=== PATIENT | male | born 1955 | race Caucasian/White ===

== ENCOUNTER 2017-02-14 18:14 | Emergency (ER) | payer MEDICARE, OTHER ==
[~2017-02-14] VITALS: Ht 175.3 cm; Wt 79.5 kg
[~2017-02-14 18:14] MED LIST: ASC500 PO; BACL20TA PO; BISA10SU55 RC; CALC-61 PO; CLI60SOL TOP; CRAN450C PO; DABI150C PO; DEXT1CAP PO; DIVA250T60 PO; DOCU-144 PO; DOXY-220 PO; FER325 PO; FLUC100T39 PO; HYDR-906 PO; IPRA3AMP INHALATION; LACT20SO2 PO; LAM1CR24 TOP; MAGN400O4 PO; MORP60TA37 PO; MULTI PO; NA P230E RC; PROC10TA10 PO; PROP10TA6 PO; SENN-53 PO; TYL500 PO; VARE1TAB20 PO; ZOLP5TAB PO
[2017-02-14 18:34] VITALS: Ht 175.3 cm; Wt 79.5 kg
[2017-02-14 18:45] LABS: ADD SCAN DIFF NO
[2017-02-14 18:47] LABS: BASOPHIL # 0.1 10^3/ul (0.0-0.1); BASOPHILS % 0.8 % (0.0-2.0); EOSINOPHILS # 0.6 10^3/ul (0.0-0.5); EOSINOPHILS % 7.2 % (0.0-7.0); HEMOGLOBIN 13.3 g/dl (14.0-18.0); LYMPHOCYTES # 2.4 10^3/ul (0.8-2.9); LYMPHOCYTES % 29.1 % (15.0-51.0); MEAN CORPUSCULAR HEMOGLOBIN 26.8 pg (29.0-33.0); MEAN CORPUSCULAR HGB CONC 30.9 g/dl (32.0-37.0); MEAN CORPUSCULAR VOLUME 86.5 fl (82.0-101.0); MEAN PLATELET VOLUME 10.8 fl (7.4-10.4); MONOCYTE # 0.8 10^3/ul (0.3-0.9); MONOCYTES % 9.2 % (0.0-11.0); NEUTROPHIL # 4.4 10^3/ul (1.6-7.5); NEUTROPHILS % 53.5 % (39.0-77.0); PLATELET COUNT 176 10^3/UL (140-415); RED BLOOD COUNT 4.97 10^6/ul (4.70-6.10); RED CELL DISTRIBUTION WIDTH 15.7 % (11.5-14.5); WHITE BLOOD COUNT 8.3 10^3/ul (4.8-10.8)
[2017-02-14] MEDS ORDERED: CRAN425C PO (18:58)
[2017-02-14] MEDS ORDERED: LACT10SO5 PO (18:59)
[2017-02-14] MEDS ORDERED: ACET325T33 PO (19:01)
[2017-02-14] MEDS ORDERED: ZINC220T PO (19:01)
--- NOTE | 2017-02-14 19:04 | ERA ---
ER Documentation Chief Complaint Date/Time DATE: 02/14/17 Chief Complaint Head pain HPI The patient is a 61-year-old male, presenting to the ER because he fell off the wheelchair prior to arrival. He has a small bleb on the left side of the head, denies syncope, near syncope, facial pain, neck pain, chest pain, dyspnea, abdominal pain, vomiting. He does not smoke or drink Past medical history: Hypertension, history of CVA Past surgical history: None ROS All systems reviewed and are negative except as per history of present illness. Medications Home Meds Active Scripts Ferrous Sulfate* (Ferrous Sulfate*) 325 Mg Tabec, 325 MG PO DAILY, #30 TAB Prov:JAYLIN MELENDEZ MD 09/15/16 Reported Medications Zinc Sulfate* (Zinc Sulfate*) 220 Mg Tablet, 220 MG PO DAILY, TAB 02/14/17 Acetaminophen* (Tylenol*) 325 Mg Tablet, 650 MG PO Q6H Y for MILD PAIN LEVEL 1-3 , TAB 02/14/17 Lactulose* (Lactulose*) 10 Gm/15 Ml Solution, 20 GM PO DAILY Y for PRN, ML 02/14/17 Cranberry Extract (Cranberry) 425 Mg Capsule, 425 MG PO DAILY, CAP 02/14/17 Multivitamins* (Theragran*) 1 Tab Tab, 1 TAB PO Q12, TAB 09/13/16 Morphine Sulfate* (Ms Contin*) 60 Mg Tablet.sa, 60 MG PO Q12H, TAB.SA 09/13/16 Magnesium Hydroxide* (Milk Of Magnesia*) 400 Mg/5 Ml Oral.susp, 30 ML PO Q12H Y for PRN, ML 09/13/16 Propranolol Hcl* (Propranolol Hcl*) 10 Mg Tablet, 10 MG PO BID, TAB HOLD IF SBP BELOW 110,HR BELOW 60 09/13/16 Na Phos,M-B/Na Phos,Di-Ba (Fleet Enema Extra) 230 Ml Enema, 230 ML RC NEEDED Y for PRN, ENEMA 09/13/16 Ipratropium-Albuterol (Ipratropium-Albuterol) 0.5-3 Mg/3 Ml Ampul.neb, 3 ML INHALATION Q6 Y for PRN, #30 VIAL 09/13/16 Bisacodyl (Dulcolax) 10 Mg Supp.rect, 10 MG RC NEEDED Y for PRN, SUPP.RECT 09/13/16 Divalproex Sodium* (Depakote*) 250 Mg Tablet.dr, 250 MG PO QHS, TAB 09/13/16 Prochlorperazine* (Prochlorperazine*) 10 Mg Tablet, 10 MG PO Q8 Y for NAUSEA, TAB 09/13/16 Docusate Sodium* (Colace*) 100 Mg Capsule, 200 MG PO QHS, #30 CAP 09/13/16 Varenicline Tartrate (Chantix) 1 Mg Tablet, 1 MG PO BID, TAB 09/13/16 Ascorbic Acid (Vitamin C) 500 Mg Tab, 500 MG PO BID, TAB 09/13/16 Acetaminophen* (Tylenol*) 500 Mg Tab, 1000 MG PO Q6H Y for PAIN 4-05/06, TAB 09/13/16 Sennosides* (Senna Lax*) 8.6 Mg Tablet, 2 TAB PO QHS, TAB 09/13/16 Dabigatran Etexilate Mesylate* (Pradaxa*) 150 Mg Capsule, 150 MG PO BID, CAP 09/13/16 Hydrocodone/Acetaminophen ([place] 5-325 Tablet) 1 Each Tablet, 1 EACH PO Q6 Y for PAIN 7-08/06, TAB 09/13/16 Calcium Carbonate/Vitamin D3 (Calcium 500 + Vit D 200 Tablet) 1 Each Tablet, 1 EACH PO BID, TAB 09/13/16 Baclofen* (Baclofen*) 20 Mg Tablet, 40 MG PO TID, TAB 09/13/16 Zolpidem Tartrate* (Ambien*) 5 Mg Tablet, 5 MG PO QHS Y for INSOMNIA, #30 TAB 09/13/16 Discontinued Reported Medications Lactulose* (Lactulose*) 20 Gm/30 Ml Solution, 20 GM PO NEEDED Y for PRN, ML 09/13/16 Cranberry Fruit Concentrate (CRANBERRY) 450 Mg Capsule, 450 MG PO DAILY, CAP 09/13/16 Dextromethorphan Hbr/Quinidine (NUEDEXTA 20-10 MG CAPSULE) 1 Each Capsule, 1 EACH PO Q12, CAP 09/13/16 Discontinued Scripts Doxycycline Monohydrate* (Doxycycline Monohydrate*) 100 Mg Tablet, 100 MG PO BID for 20 Days, TAB Prov:JAYLIN MELENDEZ MD 09/15/16 Fluconazole* (Fluconazole*) 100 Mg Tablet, 100 MG PO DAILY, #10 TAB Prov:JAYLIN MELENDEZ MD 09/15/16 Terbinafine Hcl* (Lamisil*) 1% - 30 Gm Cr, 1 APPLIC TOP DAILY for 30 Days, #1 TUB Prov:JAYLIN MELENDEZ MD 09/15/16 Clindamycin* Topical (Clindamycin* Topical) 1 %-60 Ml Solution, 1 APPLIC TOP BID for 20 Days, EA Prov:JAYLIN MELENDEZ MD 09/15/16 Allergies Allergies: Coded Allergies: No Known Drug Allergies (Verified Allergy, Unknown, 02/14/17) PMhx/Soc History of Surgery: No Anesthesia Reaction: No Hx Neurological Disorder: No Hx Respiratory Disorders: Yes (COPD, ASTHMA) Hx Cardiac Disorders: Yes (CVA (PER PATIENT 8 YEARS AGO)) Hx Psychiatric Problems: Yes Hx Miscellaneous Medical Probl: Yes (Dysphagia S/P PEG ) Hx Alcohol Use: Yes Hx Substance Use: No Hx Tobacco Use: No Physical Exam Vitals Vital Signs Date Time Temp Pulse Resp B/P Pulse Ox O2 Delivery O2 Flow Rate FiO2 02/14/17 18:34 98.4 80 18 109/68 97 Physical Exam Const: No acute distress. Head: Atraumatic. Eyes: Normal Conjunctiva. ENT: Normal External Ears, Nose and Mouth. Neck: Full range of motion. No meningismus. Resp: Clear to auscultation bilaterally. Cardio: Regular rate and rhythm, no murmurs. Abd: Soft, non distended, normal bowel sounds, non tender. Skin: No petechiae or rashes. Back: No midline or flank tenderness. Ext: No cyanosis, or edema. Neur: Awake and alert. Left hemiparalysis Psych: Normal Mood and Affect. Result Diagram: 02/14/17 1835 02/14/17 1835 Results 24 hrs Laboratory Tests Test 02/14/17 18:35 Activated Partial Thromboplast Time Pending Anion Gap 17 Basophils # 0.110^3/ul Basophils % 0.8% Blood Urea Nitrogen 18mg/dl Calcium Level 9.1mg/dl Carbon Dioxide Level 30mmol/L Chloride Level 104mmol/L Creatinine 0.75mg/dl Eosinophils # 0.610^3/ul Eosinophils % 7.2% Glucose Level 110mg/dl Hematocrit 43.0% Hemoglobin 13.3g/dl INR International Normalized Ratio 1.23 Lymphocytes # 2.410^3/ul Lymphocytes % 29.1% Mean Corpuscular Hemoglobin 26.8pg Mean Corpuscular Hemoglobin Concent 30.9g/dl Mean Corpuscular Volume 86.5fl Mean Platelet Volume 10.8fl Monocytes # 0.810^3/ul Monocytes % 9.2% Neutrophils # 4.410^3/ul Neutrophils % 53.5% Nucleated Red Blood Cells # 0.010^3/ul Nucleated Red Blood Cells % 0.0/100WBC Platelet Count 53145^3/UL Potassium Level 4.3mmol/L Prothrombin Time 15.6Sec Prothrombin Time Ratio 1.2 Red Blood Count 4.9710^6/ul Red Cell Distribution Width 15.7% Sodium Level 147mmol/L White Blood Count 8.310^3/ul Procedures/[place] [id number] Radiology Main Line: [phone] DIAGNOSTIC IMAGING REPORT Patient: GAUDENCIO GODFREY : 1955 Age: 61 Sex: M MR #: [id number] DOS: 02/14/17 1823 Ordering MD: RAMIRO CROSS MD Location: E/R Room/Bed: PROCEDURE: CT Brain without contrast. CLINICAL INDICATION: Headache. TECHNIQUE: A CT of the brain without contrast was performed utilizing axial sections from the skull base through the vertex. The patient was scanned without intravenous contrast enhancement. Sagittal and coronal reformatted images were obtained using the data from the axial images. Total exam DLP is 720.23 mGy-cm. CTDIvol is 45.01 mGy. One or more of the following dose reduction techniques were used: Automated exposure control, adjustment of the mA and/or kV according to patient size, use of iterative reconstruction technique. COMPARISON: CT scan of the brain dated 07/14/2013 which demonstrated extensive encephalomalacia in the right middle cerebral artery distribution and encephalomalacia in the left frontal parietal region consistent with left middle cerebral artery distribution infarcts. There was also atrophy. FINDINGS: As seen previously, there is a large infarct in the right middle cerebral artery distribution with associated encephalomalacia in the region measuring 11.2 x 4.7 x 9.8 cm in AP, transverse, and cranial caudal dimensions. Multiple smaller infarcts are noted in the left middle cerebral artery distribution with a posterior parietal infarct measuring 3.9 x 4.2 cm and a posterior frontal infarct measuring 3.2 x 3.0 cm, unchanged. There is no new infarct. There is ex vacuo enlargement of the right lateral ventricle. The ventricles are diffusely mildly enlarged consistent with atrophy. There is no intracranial hemorrhage or space-occupying lesion. There is no midline shift. There is no extra-axial fluid collection. There is no skull fracture or lytic lesion. IMPRESSION: 1. Bilateral old infarcts with associated encephalomalacia, unchanged from . 2. Atrophy. 3. No acute infarct. 4. No intracranial hemorrhage. 5. Otherwise unremarkable study. RPTAT: QQ .Hunter Castillo MD, MD Date Time Electronically viewed and signed by .Hunter Castillo MD, MD on 02/14/2017 19:14 .R/ CC: RAMIRO CROSS MD MEDICAL MAKING DECISION: The patient is a 61-year-old male, presenting with acute scalp contusion. The differential diagnoses considered include but are not limited to subarachnoid hemorrhage, occult trauma, CVA, meningitis, encephalitis, hypertension, tension, migraine, cluster, narcotic withdrawal, cervical spine disease. Departure Diagnosis: Primary Impression: Scalp contusion Additional Impression: Anemia Condition: Good Additional Instructions: I discussed the findings with the patient. I advised the patient to follow-up with the primary physician in about 1-2 days, sooner if needed and return if any concern. RAMIRO CROSS MD Feb 14, 2017 19:04
[2017-02-14 19:08] LABS: INR 1.23; PROTIME 15.6 Sec (12.2-14.2); PT RATIO 1.2
--- NOTE | 2017-02-14 19:14 | RADRPT ---
PROCEDURE: CT Brain without contrast. CLINICAL INDICATION: Headache. TECHNIQUE: A CT of the brain without contrast was performed utilizing axial sections from the skul l base through the vertex. The patient was scanned without intravenous contrast enhancement. Sagitta l and coronal reformatted images were obtained using the data from the axial images. Total exam DLP is 720.23 mGy-cm. CTDIvol is 45.01 mGy. One or more of the following dose reduction techniques we re used: Automated exposure control, adjustment of the mA and/or kV according to patient size, use o f iterative reconstruction technique. COMPARISON: CT scan of the brain dated 07/14/2013 which demonstrated extensive encephalomalacia in the right middle cerebral artery distribution and encephalomalacia in the left frontal parietal reg ion consistent with left middle cerebral artery distribution infarcts. There was also atrophy. FINDINGS: As seen previously, there is a large infarct in the right middle cerebral artery distribution with a ssociated encephalomalacia in the region measuring 11.2 x 4.7 x 9.8 cm in AP, transverse, and crania l caudal dimensions. Multiple smaller infarcts are noted in the left middle cerebral artery distrib ution with a posterior parietal infarct measuring 3.9 x 4.2 cm and a posterior frontal infarct measu ring 3.2 x 3.0 cm, unchanged. There is no new infarct. There is ex vacuo enlargement of the right lateral ventricle. The ventricles are diffusely mildly e nlarged consistent with atrophy. There is no intracranial hemorrhage or space-occupying lesion. There is no midline shift. There is no extra-axial fluid collection. There is no skull fracture or lytic lesion. IMPRESSION: 1. Bilateral old infarcts with associated encephalomalacia, unchanged from 07/14/2013. 2. Atrophy. 3. No acute infarct. 4. No intracranial hemorrhage. 5. Otherwise unremarkable study. RPTAT: QQ .Hunter Castillo MD, MD Date Time Electronically viewed and signed by .Hunter Castillo MD, MD on 02/14/2017 19:14 .R/
[2017-02-14 19:17] LABS: POTASSIUM 4.3 mmol/L (3.5-5.1)
[2017-02-14 19:20] LABS: CREATININE 0.75 mg/dl (0.61-1.24)
[2017-02-14 19:21] LABS: CALCIUM 9.1 mg/dl (8.4-10.2)
[2017-02-14 20:29] VITALS: BP 142/69; PULSE 85; RESP 18; TEMP 98
[2017-02-14 22:39] LABS: PARTIAL THROMBOPLASTIN TIME 45.4 Sec (25.0-35.0)
== END 2017-02-14 20:50 | disposition home or self-care (01) ==
LOC: E/R 18:14
DX: S00.03XA Contusion of scalp, initial encounter (principal); D64.9 Anemia, unspecified; J44.9 Chronic obstructive pulmonary disease, unspecified; I10 Essential (primary) hypertension; W07.XXXA Fall from chair, initial encounter; Y92.9 Unspecified place or not applicable
CPT/HCPCS: 70450; 80048; 85025; 85610; 85730